=== PATIENT | female | born 1970 | race Caucasian/White ===

== ENCOUNTER 2018-06-05 11:12 | Emergency (ER) | payer MEDICAID ==
[~2018-06-05] VITALS: Ht 165.1 cm; Wt 68.9 kg
[2018-06-05 11:24] VITALS: BP_SYST 128
[2018-06-05 13:42] VITALS: BP_SYST 128
== END 2018-06-05 13:44 | disposition home or self-care (01) ==
LOC: SED 11:12
DX: J02.9 Acute pharyngitis, unspecified (principal); R11.2 Nausea with vomiting, unspecified; R51 Headache; E11.9 Type 2 diabetes mellitus without complications; I10 Essential (primary) hypertension
CPT/HCPCS: 70360-TC; 71046-TC; 99283

== ENCOUNTER 2018-07-01 17:06 | Emergency (ER) | payer MEDICAID ==
[~2018-07-01] VITALS: Ht 162.6 cm; Wt 71.7 kg
[2018-07-01 17:17] VITALS: BP_SYST 143
[2018-07-01 17:59] LABS: BASOPHILS # (AUTO) 0.1 K/uL (0.0-0.2); EOSINOPHILS # (AUTO) 0.5 K/uL (0.0-0.4); EOSINOPHILS % (AUTO) 5.2 % (0.0-4.0); HEMATOCRIT 44.9 % (36-48); LYMPHOCYTES # (AUTO) 3.7 K/uL (1.0-5.5); LYMPHOCYTES % (AUTO) 36.8 % (20.5-51.5); MEAN CORPUSCULAR HEMOGLOBIN 29 pg (27-31); MEAN CORPUSCULAR HGB CONC 34 % (32-36); MEAN CORPUSCULAR VOLUME 88 fL (79.0-98.0); MONOCYTES # (AUTO) 0.6 K/uL (0.0-1.0); MONOCYTES % (AUTO) 5.7 % (1.7-9.3); NEUTROPHILS # (AUTO) 5.2 K/uL (1.8-7.7); NEUTROPHILS % (AUTO) 51.3 % (40.0-70.0); PLATELET COUNT (AUTO) 322 K/uL (130-430); RED BLOOD CELL COUNT(AUTO) 5.11 MIL/uL (4.2-6.2); RED CELL DISTRIBUTION WIDTH 12.1 % (9.0-15.0); WHITE BLOOD COUNT (AUTO) 10.1 K/uL (4.8-10.8)
[2018-07-01 18:07] LABS: ACETONE, SERUM NEGATIVE (NEGATIVE)
[2018-07-01 18:11] LABS: PROTHROMBIN TIME 9.8 SECS (9.5-12.5)
[2018-07-01 18:18] LABS: ANION GAP 12 (5-15); CHLORIDE 97 mmol/L (98-107); POTASSIUM 4.6 mmol/L (3.5-5.1); SODIUM SERUM 131 mmol/L (136-145)
[2018-07-01 18:21] LABS: CALCIUM 9.8 mg/dL (8.4-11.0); CREATININE 0.84 mg/dL (0.55-1.30); GLUCOSE 466 mg/dL (70-99); UREA NITROGEN, BLOOD 13 mg/dL (8-21)
[2018-07-01 18:22] LABS: ALANINE AMINOTRANSFERASE 62 U/L (12-78); ALBUMIN 4.1 g/dL (3.4-4.8); AMYLASE 99 U/L (0-100); LIPASE 161 U/L (73-393); TOTAL BILIRUBIN 0.3 mg/dL (0.0-1.0)
[2018-07-01] MEDS ORDERED: INSULIN REGULAR, HUMAN 10 UNITS/0.1 ML INJ SUBCUT ONE (18:45)
[2018-07-01 18:59] LABS: ASPARTATE AMINOTRANSFERASE 30 U/L (10-37)
[2018-07-01] MEDS ORDERED: HYDROcodone/ACETAMIN 10-325 MG TAB PO ONE (19:30)
[2018-07-01] MEDS ORDERED: IBUPROFEN 800 MG TABLET PO ONE (19:30)
[2018-07-01 20:19] VITALS: BP_SYST 137
== END 2018-07-01 20:19 | disposition home or self-care (01) ==
LOC: SED 17:06
DX: E11.65 Type 2 diabetes mellitus with hyperglycemia (principal); I10 Essential (primary) hypertension; Z79.4 Long term (current) use of insulin
CPT/HCPCS: 36415; 80053; 81002; 81025; 82009; 82150; 82962; 83690; 84703; 85025; 85610; 85730; 96372; 99283; J1815

== ENCOUNTER 2018-07-24 15:28 | Emergency (ER) | payer MEDICAID ==
[~2018-07-24] VITALS: Ht 162.6 cm; Wt 71.7 kg
[2018-07-24 15:35] VITALS: BP_SYST 136
[2018-07-24 16:23] VITALS: BP_SYST 132
== END 2018-07-24 16:25 | disposition home or self-care (01) ==
LOC: SED 15:28
DX: H66.91 Otitis media, unspecified, right ear (principal); J06.9 Acute upper respiratory infection, unspecified; E11.9 Type 2 diabetes mellitus without complications; I10 Essential (primary) hypertension; E78.5 Hyperlipidemia, unspecified
CPT/HCPCS: 36415; 86403; 87081; 99283

== ENCOUNTER 2018-08-06 09:40 | Day surgery (SDC) | payer MEDICAID ==
[~2018-08-06] VITALS: Ht 162.6 cm; Wt 71.7 kg
[2018-08-06] MEDS ORDERED: MIDAZOLAM HCL 5 MG/5 ML VIAL ONE (10:04)
[2018-08-06 10:08] LABS: HCG,QUAL RESULT NEGATIVE (NEGATIVE)
[2018-08-06] MEDS: DIPHENHYDRAMINE INJ 50 MG/ML VIAL ONE (10:34)
[2018-08-06] MEDS: MIDAZOLAM HCL 2 MG/2 ML VIAL (VERSED) IVP ONE ×2 (10:35→10:46)
[2018-08-06] MEDS: methylPREDNISolone ACETATE 40 MG/ML IM ONE (10:46)
[2018-08-06] MEDS: fentaNYL CITRATE/PF 100 MCG/2 ML AMP IVP ONE (10:46)
[2018-08-06] MEDS: LIDOCAINE 2%, 20 ML MDV IM ONE (10:46)
[2018-08-06] MEDS: BUPIVACAINE /PF 0.25% 30 ML VIAL INJ ONE (10:46)
[2018-08-06 11:05] VITALS: BP_SYST 112
== END 2018-08-06 12:40 | disposition home or self-care (01) ==
LOC: SDS 09:40 → SMU 09:44 → SDS 12:40
PROVIDERS: ATTEND Internal Medicine
DX: M51.16 Intervertebral disc disorders with radiculopathy, lumbar region (principal); M47.26 Other spondylosis with radiculopathy, lumbar region; M79.10 Myalgia, unspecified site; I10 Essential (primary) hypertension; E11.9 Type 2 diabetes mellitus without complications; M19.90 Unspecified osteoarthritis, unspecified site; G89.29 Other chronic pain; Z79.899 Other long term (current) drug therapy
CPT/HCPCS: 62323; 82962; 84703; J1030; J1200; J2001; J2250; J3010; J3465; J3490; 76000

== ENCOUNTER 2018-09-26 09:54 | Emergency (ER) | payer MEDICAID ==
[~2018-09-26] VITALS: Ht 162.6 cm; Wt 73.9 kg
[2018-09-26 09:54] VITALS: BP_SYST 129
[2018-09-26 11:24] VITALS: BP_SYST 129
== END 2018-09-26 10:36 | disposition home or self-care (01) ==
LOC: SED 09:54
DX: J06.9 Acute upper respiratory infection, unspecified (principal); J02.9 Acute pharyngitis, unspecified; E11.9 Type 2 diabetes mellitus without complications; I10 Essential (primary) hypertension; R78.5 Finding of other psychotropic drug in blood
CPT/HCPCS: 81025; 82962; 99283

== ENCOUNTER 2018-11-26 09:35 | Day surgery (SDC) | payer MEDICAID ==
[~2018-11-26] VITALS: Ht 162.6 cm; Wt 74.8 kg
[2018-11-26] MEDS ORDERED: BUPIVACAINE /PF 0.25% 30 ML VIAL INJ ONE (09:36)
[2018-11-26] MEDS ORDERED: LIDOCAINE 2%, 20 ML MDV INJ ONE (09:36)
[2018-11-26] MEDS ORDERED: methylPREDNISolone ACETATE 40 MG/ML IM ONE (09:36)
[2018-11-26] MEDS ORDERED: IOHEXOL 300 mgI/mL, 50 mL INFUS..BTL IV ONE (09:36)
[2018-11-26] MEDS ORDERED: MIDAZOLAM HCL 5 MG/5 ML VIAL ONE (10:02)
[2018-11-26] MEDS ORDERED: DIPHENHYDRAMINE INJ 50 MG/ML VIAL ONE (10:02)
[2018-11-26 11:17] LABS: HCG,QUAL RESULT NEGATIVE (NEGATIVE)
[2018-11-26] MEDS ORDERED: LORazepam 1 MG TABLET PO ONE (12:55)
[2018-11-26] MEDS ORDERED: LORazepam 1 MG TABLET ONE (13:08)
[2018-11-26 17:03] VITALS: BP_SYST 118
== END 2018-11-26 14:40 | disposition home or self-care (01) ==
LOC: SDS 09:35 → SMU 09:35 → SDS 14:40
PROVIDERS: ATTEND Internal Medicine
DX: M51.16 Intervertebral disc disorders with radiculopathy, lumbar region (principal); M54.5 Low back pain; E11.9 Type 2 diabetes mellitus without complications; Z79.899 Other long term (current) drug therapy
CPT/HCPCS: 62323; 82962; 84703; J1030; J1200; J2001; J2250; J3490; Q9967; 76000

== ENCOUNTER 2019-04-07 08:33 | Day surgery (SDC) | payer MEDICAID ==
[~2019-04-07] VITALS: Ht 162.6 cm; Wt 74.8 kg
[~2019-04-07 08:33] MED LIST: BUPIVACAINE /PF 0.25% 30 ML VIAL INJ ONE; IOHEXOL 300 mgI/mL, 50 mL INFUS..BTL IV ONE; LIDOCAINE 2%, 20 ML MDV ONE; methylPREDNISolone ACETATE 40 MG/ML ONE
[2019-04-07 09:39] LABS: HCG,QUAL RESULT NEGATIVE (NEGATIVE)
[2019-04-07] MEDS ORDERED: DIPHENHYDRAMINE INJ 50 MG/ML VIAL ONE (09:50)
[2019-04-07] MEDS ORDERED: MIDAZOLAM HCL 5 MG/5 ML VIAL ONE (09:50)
[2019-04-07 10:46] VITALS: BP_SYST 106
== END 2019-04-07 14:58 | disposition home or self-care (01) ==
LOC: SDS 08:33 → SMU 08:33 → SDS 14:58
PROVIDERS: ATTEND Internal Medicine
DX: M51.9 Unspecified thoracic, thoracolumbar and lumbosacral intervertebral disc disorder (principal); M47.816 Spondylosis without myelopathy or radiculopathy, lumbar region; M54.5 Low back pain; G89.29 Other chronic pain; Z79.82 Long term (current) use of aspirin; Z79.899 Other long term (current) drug therapy
CPT/HCPCS: 62323; 84703; J1030; J2001; J2250; J3490; J7120; Q9967; 76000; J1200

== ENCOUNTER 2019-07-24 08:35 | Day surgery (SDC) | payer MEDICAID ==
[2019-07-24 08:58] LABS: HCG,QUAL RESULT NEGATIVE (NEGATIVE)
[2019-07-24] MEDS ORDERED: IOPAMIDOL 50 ML VIAL IV ONE (09:00)
[2019-07-24] MEDS ORDERED: methylPREDNISolone ACETATE 40 MG/ML ONE (09:00)
[2019-07-24] MEDS ORDERED: BUPIVACAINE /PF 0.25% 30 ML VIAL INJ ONE (09:00)
[2019-07-24] MEDS ORDERED: LIDOCAINE 2%, 20 ML MDV ONE (09:00)
[2019-07-24] MEDS ORDERED: MIDAZOLAM HCL 5 MG/5 ML VIAL ONE (09:17)
[2019-07-24] MEDS ORDERED: DIPHENHYDRAMINE INJ 50 MG/ML VIAL ONE (09:18)
[2019-07-24 11:12] VITALS: BP_SYST 117
== END 2019-07-24 12:45 | disposition home or self-care (01) ==
LOC: SDS 08:35 → SMU 08:38 → SDS 12:45
PROVIDERS: ATTEND Internal Medicine
DX: M51.86 Other intervertebral disc disorders, lumbar region (principal); M54.2 Cervicalgia; G89.4 Chronic pain syndrome; E11.9 Type 2 diabetes mellitus without complications; I10 Essential (primary) hypertension; Z79.82 Long term (current) use of aspirin; Z79.899 Other long term (current) drug therapy
CPT/HCPCS: 62323; 82962; 84703; J1030; J1200; J2001; J2250; J3490; Q9967

== ENCOUNTER 2019-12-02 07:38 | Day surgery (SDC) | payer MEDICAID ==
[2019-12-02 09:15] LABS: HCG,QUAL RESULT NEGATIVE (NEGATIVE)
[2019-12-02] MEDS ORDERED: MIDAZOLAM HCL 2 MG/2 ML VIAL (VERSED) ONE ×2 (09:29→10:37)
[2019-12-02 10:30] VITALS: BP_SYST 110
[2019-12-02] MEDS ORDERED: DIPHENHYDRAMINE INJ 50 MG/ML VIAL ONE (10:37)
[2019-12-02] MEDS ORDERED: LIDOCAINE 2%, 20 ML MDV ONE (14:37)
[2019-12-02] MEDS ORDERED: BUPIVACAINE /PF 0.25% 30 ML VIAL INJ ONE (14:37)
[2019-12-02] MEDS ORDERED: methylPREDNISolone ACETATE 40 MG/ML ONE (14:37)
== END 2019-12-02 14:20 | disposition home or self-care (01) ==
LOC: SDS 07:38
PROVIDERS: ATTEND Internal Medicine
DX: M47.26 Other spondylosis with radiculopathy, lumbar region (principal); E11.9 Type 2 diabetes mellitus without complications; I10 Essential (primary) hypertension; Z79.82 Long term (current) use of aspirin; Z79.899 Other long term (current) drug therapy; G89.4 Chronic pain syndrome
CPT/HCPCS: 62323; 82962; 84703; J1030; J1200; J2001; J3465; J3490; 76000

== ENCOUNTER 2020-01-06 09:38 | Day surgery (SDC) | payer MEDICAID, SELFPAY ==
[~2020-01-06] VITALS: Ht 165.1 cm; Wt 59.0 kg
[2020-01-06] MEDS ORDERED: BUPIVACAINE /PF 0.25% 30 ML VIAL INJ ONE (09:39)
[2020-01-06] MEDS ORDERED: LIDOCAINE 2%, 20 ML MDV INJ ONE (09:39)
[2020-01-06] MEDS ORDERED: methylPREDNISolone ACETATE 80 MG/ML IM ONE (09:39)
[2020-01-06] MEDS ORDERED: NS 50 ML BAG IV ONE (09:39)
[2020-01-06] MEDS ORDERED: IOPAMIDOL 50 ML VIAL IV ONE (09:39)
[2020-01-06 10:32] LABS: HCG,QUAL RESULT NEGATIVE (NEGATIVE)
[2020-01-06] MEDS ORDERED: DIPHENHYDRAMINE INJ 50 MG/ML VIAL ONE (11:40)
[2020-01-06] MEDS ORDERED: MIDAZOLAM HCL 5 MG/5 ML VIAL ONE (11:40)
[2020-01-06 11:41] VITALS: BP_SYST 102
== END 2020-01-06 14:54 | disposition home or self-care (01) ==
LOC: SDS 09:38 → SMU 09:51 → SDS 14:54
PROVIDERS: ATTEND Internal Medicine
DX: M47.26 Other spondylosis with radiculopathy, lumbar region (principal); G89.4 Chronic pain syndrome; Z79.82 Long term (current) use of aspirin; Z79.899 Other long term (current) drug therapy; E11.9 Type 2 diabetes mellitus without complications; I10 Essential (primary) hypertension; Z11.59 Encounter for screening for other viral diseases
CPT/HCPCS: 62323; 82962; 84703; J1040; J1200; J2001; J2250; J3490; J7120; Q9967; U0003; 76000

== ENCOUNTER 2020-08-03 09:02 | Day surgery (SDC) | payer MEDICAID, SELFPAY ==
[~2020-08-03] VITALS: Ht 162.6 cm; Wt 76.2 kg
[2020-08-03 12:41] LABS: HCG,QUAL RESULT NEGATIVE (NEGATIVE)
[2020-08-03] MEDS ORDERED: DIPHENHYDRAMINE INJ 50 MG/ML VIAL ONE (14:33)
[2020-08-03] MEDS ORDERED: MIDAZOLAM HCL 5 MG/5 ML VIAL ONE (14:33)
[2020-08-03 14:54] VITALS: BP_SYST 116
== END 2020-08-03 14:03 | disposition home or self-care (01) ==
LOC: SDS 09:02
PROVIDERS: ATTEND Internal Medicine
DX: M51.16 Intervertebral disc disorders with radiculopathy, lumbar region (principal); E11.9 Type 2 diabetes mellitus without complications; I10 Essential (primary) hypertension; G89.4 Chronic pain syndrome; M79.10 Myalgia, unspecified site; Z79.82 Long term (current) use of aspirin; Z79.899 Other long term (current) drug therapy; Z20.828 Contact with and (suspected) exposure to other viral communicable diseases
CPT/HCPCS: 62323; 82962; 84703; J1200; J2250; U0003; 76000

== ENCOUNTER 2020-11-08 13:17 | Emergency (ER) | payer MEDICAID, SELFPAY ==
[~2020-11-08] VITALS: Ht 162.6 cm; Wt 77.1 kg
[2020-11-08 13:23] VITALS: BP_SYST 150
[2020-11-08] MEDS ORDERED: IPRATROPIUM/ALBUTEROL SULFATE 3 ML AMPUL.NEB (DUONEB) ONE (13:38)
[2020-11-08] MEDS ORDERED: traMADol HCL HCL 50 MG TABLET (ULTRAM) PO ONE (13:45)
[2020-11-08] MEDS ORDERED: IPRATROPIUM/ALBUTEROL SULFATE 3 ML AMPUL.NEB (DUONEB) INH ONE (13:45)
[2020-11-08] MEDS ORDERED: HYDR5SYR3 PO ×2 (14:02→15:56)
[2020-11-08] MEDS ORDERED: PRED50TA PO ×2 (14:02→15:56)
[2020-11-08] MEDS ORDERED: ALBMDI INH ×2 (14:02→15:56)
[2020-11-08 14:56] VITALS: BP_SYST 150
== END 2020-11-08 14:56 | disposition home or self-care (01) ==
LOC: SED 13:17
DX: J40 Bronchitis, not specified as acute or chronic (principal); I10 Essential (primary) hypertension; E11.9 Type 2 diabetes mellitus without complications; Z20.822 Contact with and (suspected) exposure to COVID-19
CPT/HCPCS: 71045; 94640; 99284; C9803; U0003

== ENCOUNTER 2020-11-10 09:13 | Emergency (ER) | payer MEDICAID ==
[~2020-11-10] VITALS: Ht 162.6 cm; Wt 76.2 kg
[2020-11-10 09:13] VITALS: BP_SYST 121
[~2020-11-10 09:13] MED LIST changes: +ALBMDI INH; -BUPIVACAINE /PF 0.25% 30 ML VIAL INJ ONE; +HYDR5SYR3 PO; -IOHEXOL 300 mgI/mL, 50 mL INFUS..BTL IV ONE; -LIDOCAINE 2%, 20 ML MDV ONE; +PRED50TA PO; -methylPREDNISolone ACETATE 40 MG/ML ONE
[2020-11-10] MEDS ORDERED: ONDANSETRON 4 MG ODT TAB PO ONE (09:30)
[2020-11-10] MEDS ORDERED: IPRATROPIUM/ALBUTEROL SULFATE 3 ML AMPUL.NEB (DUONEB) INH ONE (09:45)
[2020-11-10] MEDS ORDERED: ONDA-8 TL (10:02)
[2020-11-10] MEDS ORDERED: BENZ-16 PO (10:02)
[2020-11-10 10:09] VITALS: BP_SYST 125
== END 2020-11-10 10:10 | disposition home or self-care (01) ==
LOC: SED 09:13
DX: K29.00 Acute gastritis without bleeding (principal); I10 Essential (primary) hypertension; E11.9 Type 2 diabetes mellitus without complications; Z79.899 Other long term (current) drug therapy
CPT/HCPCS: 94640; 99283; Q0162

== ENCOUNTER 2021-06-13 13:47 | Emergency (ER) | payer MEDICAID, SELFPAY ==
[~2021-06-13] VITALS: Ht 162.6 cm; Wt 73.9 kg
[~2021-06-13 13:47] MED LIST changes: +BENZ-16 PO; +ONDA-8 TL
[2021-06-13 15:42] VITALS: BP_SYST 137
--- NOTE | 2021-06-13 15:45 | NUR ---
Patient to ER TENT for evaluation.
--- NOTE | 2021-06-13 15:46 | NUR ---
PATIENT BRUOUGHT IN COMPLAINING OF COUGH SINCE LAST NIGHT. SHE REPORTS SHE HAD CLOSE COVID CONTACT AND WOULD LIKE TO BE TESTED. PATIENT 1 SATURATION IS 100% AND SPEAKING IN FULL SENTENCES . DENIES ANY PAIN. NO ACUTE DISTRESS NOTED.
--- NOTE | 2021-06-13 16:08 | NUR ---
TESSY Mistry at bedside examining patient.
[2021-06-13 17:22] VITALS: BP_SYST 126
--- NOTE | 2021-06-13 17:22 | NUR ---
Patient given written and verbal discharge instructions and verbalizes understanding. ER MD discussed with patient the results and treatment provided. Patient in stable condition. ID arm band removed. IV catheter removed intact and dressing applied, no active bleeding. No rx given. Patient educated on pain management and to follow up with PMD. Pain Scale 0/10 Opportunity for questions provided and answered.
== END 2021-06-13 17:22 | disposition home or self-care (01) ==
LOC: SED 13:47
DX: B34.9 Viral infection, unspecified (principal); I10 Essential (primary) hypertension; G89.29 Other chronic pain; E11.65 Type 2 diabetes mellitus with hyperglycemia; E78.5 Hyperlipidemia, unspecified; F17.210 Nicotine dependence, cigarettes, uncomplicated; Z20.822 Contact with and (suspected) exposure to COVID-19
CPT/HCPCS: 36415; 71045; 82962; 87426; 99284; U0003; C9803

== ENCOUNTER 2021-07-26 07:00 | Day surgery (SDC) | payer MEDICAID, SELFPAY ==
[~2021-07-26] VITALS: Ht 165.1 cm; Wt 76.2 kg
[2021-07-26 08:12] LABS: HCG,QUAL RESULT NEGATIVE (NEGATIVE)
[2021-07-26] MEDS ORDERED: DIPHENHYDRAMINE INJ 50 MG/ML VIAL ONE (08:29)
[2021-07-26] MEDS ORDERED: NS 500 ML IV.SOLN IV ONE (08:29)
[2021-07-26] MEDS ORDERED: MIDAZOLAM HCL 5 MG/5 ML VIAL ONE ×2 (08:29→08:35)
[2021-07-26] MEDS ORDERED: LIDOCAINE PF 2%, 200 MG/10 ML AMPUL.LUER (EPIDURAL) INJ ONE (08:29)
[2021-07-26] MEDS ORDERED: BUPIVACAINE /PF 0.25% 30 ML VIAL INJ ONE (08:29)
[2021-07-26] MEDS ORDERED: methylPREDNISolone ACETATE 40 MG/ML ONE (08:29)
[2021-07-26 13:33] VITALS: BP_SYST 116
== END 2021-07-26 10:40 | disposition home or self-care (01) ==
LOC: SDS 07:00 → SMU 07:02 → SDS 10:40
PROVIDERS: ATTEND Internal Medicine
DX: M47.26 Other spondylosis with radiculopathy, lumbar region (principal); M51.16 Intervertebral disc disorders with radiculopathy, lumbar region; M54.2 Cervicalgia; G89.4 Chronic pain syndrome; I10 Essential (primary) hypertension; E11.9 Type 2 diabetes mellitus without complications; Z79.899 Other long term (current) drug therapy; Z20.822 Contact with and (suspected) exposure to COVID-19
CPT/HCPCS: 36415; 76000; 82962; 84703; J1030; J1200; J2001; J2250; J3490; J7040; U0003

== ENCOUNTER 2022-07-25 07:05 | Day surgery (SDC) | payer MEDICAID ==
[~2022-07-25] VITALS: Ht 162.6 cm; Wt 74.8 kg
[2022-07-25 07:42] LABS: HCG,QUAL RESULT NEGATIVE (NEGATIVE)
[2022-07-25] MEDS ORDERED: fentaNYL CITRATE/PF 100 MCG/2 ML AMP ONE (08:40)
[2022-07-25] MEDS ORDERED: DIPHENHYDRAMINE INJ 50 MG/ML VIAL ONE (08:40)
[2022-07-25] MEDS ORDERED: methylPREDNISolone ACETATE 40 MG/ML ONE (09:00)
[2022-07-25] MEDS ORDERED: LIDOCAINE 2%, 20 ML MDV ONE (09:00)
[2022-07-25] MEDS ORDERED: ISOVUE-300 (IOPAMIDOL) 100 ML INFUS..BTL IV ONE (09:00)
[2022-07-25] MEDS ORDERED: NORMAL SALINE 10 ML VIAL ONE (09:00)
[2022-07-25] MEDS: MIDAZOLAM HCL 5 MG/5 ML VIAL ONE ×2 (11:17→11:19)
[2022-07-25 14:48] VITALS: BP_SYST 116
== END 2022-07-25 13:00 | disposition home or self-care (01) ==
LOC: SDS 07:05 → SMU 07:05 → SDS 13:00
PROVIDERS: ATTEND Internal Medicine
DX: M51.16 Intervertebral disc disorders with radiculopathy, lumbar region (principal); M47.26 Other spondylosis with radiculopathy, lumbar region; G89.4 Chronic pain syndrome; M54.2 Cervicalgia; I10 Essential (primary) hypertension; E11.9 Type 2 diabetes mellitus without complications; Z20.822 Contact with and (suspected) exposure to COVID-19; Z79.82 Long term (current) use of aspirin; Z79.899 Other long term (current) drug therapy
CPT/HCPCS: 36415 ×2; 62323; 87426; 82962; 84703; U0003; J1200; J2001; J1030; J2250; J3010; Q9967; 76000

== ENCOUNTER 2023-01-30 09:06 | Day surgery (SDC) | payer MEDICAID ==
[~2023-01-30] VITALS: Ht 162.6 cm; Wt 77.1 kg
[2023-01-30 09:47] LABS: HCG,QUAL RESULT NEGATIVE (NEGATIVE)
[2023-01-30] MEDS ORDERED: fentaNYL CITRATE/PF 100 MCG/2 ML AMP ONE (11:41)
[2023-01-30] MEDS ORDERED: DIPHENHYDRAMINE INJ 50 MG/ML VIAL ONE (11:42)
[2023-01-30] MEDS: MIDAZOLAM HCL 5 MG/5 ML VIAL ONE ×3 (11:55→11:59)
[2023-01-30 12:52] VITALS: O2SAT 100
[2023-01-30 14:54] VITALS: BP_SYST 113; PULSE 99; RESP 16
== END 2023-01-30 13:00 | disposition home or self-care (01) ==
LOC: SDS 09:06
PROVIDERS: ATTEND Internal Medicine
DX: M51.16 Intervertebral disc disorders with radiculopathy, lumbar region (principal); M47.816 Spondylosis without myelopathy or radiculopathy, lumbar region; M54.2 Cervicalgia; G89.4 Chronic pain syndrome; I10 Essential (primary) hypertension; E11.9 Type 2 diabetes mellitus without complications; Z79.82 Long term (current) use of aspirin; Z79.899 Other long term (current) drug therapy
CPT/HCPCS: 62323; 82962; 84703; J1200; J2250; J3010; 76000

== ENCOUNTER 2023-06-26 08:56 | Day surgery (SDC) | payer MEDICAID ==
[~2023-06-26] VITALS: Ht 162.6 cm; Wt 76.2 kg
[2023-06-26 10:56] LABS: HCG,QUAL RESULT NEGATIVE (NEGATIVE)
[2023-06-26] MEDS ORDERED: INSULIN REGULAR, HUMAN 100 UNITS/ML, 3 ML VIAL SUBCUT ONE (11:45)
[2023-06-26] MEDS ORDERED: DIPHENHYDRAMINE INJ 50 MG/ML VIAL ONE (12:08)
[2023-06-26] MEDS ORDERED: fentaNYL CITRATE/PF 100 MCG/2 ML AMP ONE (12:08)
[2023-06-26] MEDS: MIDAZOLAM HCL 5 MG/5 ML VIAL ONE ×2 (12:58→13:00)
[2023-07-03 12:55] VITALS: BP_SYST 112; PULSE 90; RESP 15
== END 2023-06-26 14:15 | disposition home or self-care (01) ==
LOC: SDS 08:56
PROVIDERS: ATTEND Internal Medicine
DX: M47.26 Other spondylosis with radiculopathy, lumbar region (principal); M54.42 Lumbago with sciatica, left side; M51.9 Unspecified thoracic, thoracolumbar and lumbosacral intervertebral disc disorder; M54.2 Cervicalgia; M79.10 Myalgia, unspecified site; G89.4 Chronic pain syndrome; I10 Essential (primary) hypertension; E11.9 Type 2 diabetes mellitus without complications; Z79.82 Long term (current) use of aspirin; Z79.899 Other long term (current) drug therapy
CPT/HCPCS: 62323; 84703; 82962; J1815; J2250; J3010; 76000; 82948; J1200

== ENCOUNTER 2023-11-20 09:50 | Day surgery (SDC) | payer MEDICAID ==
[~2023-11-20] VITALS: Ht 162.6 cm; Wt 70.3 kg
[~2023-11-20 09:50] MED LIST changes: +DIPHENHYDRAMINE INJ 50 MG/ML VIAL ONE; +MIDAZOLAM HCL 5 MG/5 ML VIAL ONE; +ONDANSETRON HCL 4 MG/2 ML VIAL ONE; +fentaNYL CITRATE/PF 100 MCG/2 ML AMP ONE
[2023-11-20] MEDS ORDERED: LIDOCAINE 2%, 20 ML MDV ONE (10:00)
[2023-11-20] MEDS ORDERED: MIDAZOLAM HCL 5 MG/5 ML VIAL ONE (10:14)
[2023-11-20] MEDS ORDERED: fentaNYL CITRATE/PF 100 MCG/2 ML AMP ONE (10:14)
[2023-11-20] MEDS: fentaNYL CITRATE/PF 100 MCG/2 ML AMP IVP ONE (11:57)
[2023-11-20 14:10] VITALS: TEMP 96.8; O2SAT 95
[2023-11-20 14:17] VITALS: BP_SYST 94; PULSE 79; RESP 10
== END 2023-11-20 13:15 | disposition home or self-care (01) ==
LOC: SDS 09:50 → SMU 09:51 → SDS 13:15
PROVIDERS: ATTEND Internal Medicine
DX: M51.16 Intervertebral disc disorders with radiculopathy, lumbar region (principal); I10 Essential (primary) hypertension; E11.9 Type 2 diabetes mellitus without complications; E78.5 Hyperlipidemia, unspecified; K21.9 Gastro-esophageal reflux disease without esophagitis; Z79.82 Long term (current) use of aspirin; Z79.84 Long term (current) use of oral hypoglycemic drugs; Z79.899 Other long term (current) drug therapy
CPT/HCPCS: 62323; 82948; J2250; J3010; Q9967; J1010; 76000; J1030; J1200; J2001; J2405